=== PATIENT | female | born 1940 ===

== ENCOUNTER 2017-04-21 12:46 | Inpatient (IN) | payer OTHER ==
[~2017-04-21] VITALS: Ht 162.6 cm; Wt 64.0 kg
[2017-04-21] MEDS ORDERED: TRAZ-144 PO (13:03)
[2017-04-21] MEDS ORDERED: KRIL500C PO (13:03)
[2017-04-21] MEDS ORDERED: FERR-58 PO (13:03)
[2017-04-21] MEDS ORDERED: DIVA250T4 PO (13:03)
[2017-04-21] MEDS ORDERED: DOCU-141 PO (13:03)
[2017-04-21] MEDS ORDERED: QUET200T PO (13:03)
[2017-04-21] MEDS ORDERED: POLY17PO4 PO (13:03)
[2017-04-21] MEDS ORDERED: CYAN100T3 PO (13:03)
--- NOTE | 2017-04-21 13:19 | NUR ---
76 YEARS OLD FEMALE BIBA FOR MEDICAL CLEARANCE/PSYCH ADMIT.
[2017-04-21] MEDS ORDERED: ACETAMINOPHEN ES 500 MG TABLET PO ONE (14:00)
[2017-04-21] MEDS ORDERED: ACETAMINOPHEN ES 500 MG TABLET ONE (14:51)
--- NOTE | 2017-04-21 14:52 | NUR ---
PT STABLE FOR TRANSFER TO MENTAL HEALTH FOR PSYCH TREATMENT.REPORT GIVEN TO TASH ALL QUESTIONS ANSWERED.
[2017-04-21 15:00] VITALS: BP 120/76
--- NOTE | 2017-04-21 15:10 | NUR ---
Pt arrived to unit via gurney accompanied by nurse. Pt is calm and cooperative. Compliant with staff. Pleasant upon approach. Denies pain or discomfort. Able to verbalize all needs. Pt on 5150 hold at this time.
[2017-04-21] MEDS ORDERED: MAGNESIUM HYDROXIDE 30 ML LIQUID UDC PO PRN (15:30)
[2017-04-21] MEDS ORDERED: MAG HYDROX/AL HYDROX/SIMETH 30 ML LIQUID UDC PO PRN (15:30)
[2017-04-21] MEDS ORDERED: ZOLPIDEM 5 MG TABLET PO PRN (15:30)
--- NOTE | 2017-04-21 16:00 | NUR ---
Upon further assessment and admission interview, pt seems to be quite manic. Hyperverbal and extremely tangential, will jump from one topic to another, rambling incessantly. Pt has poor boundaries, touching nurses face and other pts. Pt also noted to be quite delusional, stating her son has "computerized my house all over."
[2017-04-21 20:00] VITALS: BP 107/65
[2017-04-21] MEDS: LORAZEPAM 0.5 MG TABLET PO PRN (20:11)
[2017-04-21] MEDS: DOCUSATE SODIUM 100 MG CAPSULE PO SCH (20:11)
[2017-04-21] MEDS: ACETAMINOPHEN 325 MG TABLET PO PRN (20:32)
[2017-04-22 07:30] VITALS: BP 118/62
[2017-04-22] MEDS: MIRALAX 17 GM POWD.PACK PO SCH (08:13)
[2017-04-22] MEDS: CYANOCOBALAMIN 100 MCG TABLET PO SCH (08:13)
[2017-04-22] MEDS: ACETAMINOPHEN 325 MG TABLET PO PRN (12:08)
[2017-04-22 15:40] VITALS: BP 113/62
[2017-04-22] MEDS: DIVALPROEX ER 250 MG TAB.SR.24H PO SCH (16:23)
[2017-04-22 19:44] VITALS: BP 117/63
[2017-04-22] MEDS: DOCUSATE SODIUM 100 MG CAPSULE PO SCH (20:30)
[2017-04-22] MEDS: QUETIAPINE FUMARATE 200 MG TABLET PO SCH (20:30)
[2017-04-23 07:25] LABS: BASOPHILS % (AUTO) 0.6 % (0.0-2.0); EOSINOPHILS # (AUTO) 0.1 K/uL (0.0-0.7); EOSINOPHILS % (AUTO) 1.3 % (0.0-7.0); HEMATOCRIT 33.8 % (31.2-41.9); LYMPHOCYTES # (AUTO) 1.9 K/uL (20.0-40.0); LYMPHOCYTES % (AUTO) 37.6 % (20.5-51.5); MEAN CORPUSCULAR HEMOGLOBIN 29.6 uug (24.7-32.8); MEAN CORPUSCULAR HGB CONC 33 g/dL (32.3-35.6); MONOCYTES # (AUTO) 0.9 K/uL (2.0-10.0); MONOCYTES % (AUTO) 17.2 % (0.0-11.0); NEUTROPHILS # (AUTO) 2.1 K/uL (1.8-8.9); NEUTROPHILS % (AUTO) 43.3 % (38.5-71.5); PLATELET COUNT (AUTO) 132 K/uL (179-408); RED BLOOD CELL COUNT(AUTO) 3.71 MIL/uL (3.63-4.92); WHITE BLOOD COUNT (AUTO) 4.9 K/uL (3.8-11.8)
[2017-04-23 07:30] VITALS: BP 119/70
[2017-04-23 07:37] LABS: CARBON DIOXIDE 28 mmol/L (21-32); CHLORIDE 108 mmol/L (98-107); CREATININE 1.7 mg/dL (0.6-1.3); GLUCOSE 88 mg/dL (74-106); MAGNESIUM 2.5 mg/dL (1.8-2.4); POTASSIUM 4.6 mmol/L (3.5-5.1); UREA NITROGEN, BLOOD 25 mg/dL (7-18)
[2017-04-23] MEDS: DIVALPROEX ER 250 MG TAB.SR.24H PO SCH ×2 (08:17→16:50)
[2017-04-23] MEDS: FERROUS SULFATE 325 MG TABEC PO SCH (08:17)
[2017-04-23] MEDS: CYANOCOBALAMIN 100 MCG TABLET PO SCH (08:17)
[2017-04-23] MEDS: MIRALAX 17 GM POWD.PACK PO SCH (08:17)
[2017-04-23 08:25] LABS: BASOPHILS % (MANUAL) 1 % (0-2); EOSINOPHILS % (MANUAL) 3 % (0-8); LYMPHOCYTES % (MANUAL) 40 % (20-40); MONOCYTES % (MANUAL) 16 % (2-10); NEUTROPHILS % (MANUAL) 40 % (42-75)
[2017-04-23 15:36] VITALS: BP 135/61
--- NOTE | 2017-04-23 17:38 | NUR ---
Gps/Director Sterile Processing- Jraocho, stayed in the TV room watching TV, min interactions w/ her peers, making needs known. Patient son John, and daughter in law Kavitha in to visit.Participating fairly well in her group therapy.Safety reviewed, emphasized, less hyper this pm
[2017-04-23 20:19] VITALS: BP 126/63
[2017-04-23] MEDS: QUETIAPINE FUMARATE 200 MG TABLET PO SCH ×2 (20:34→22:16)
[2017-04-23] MEDS: DOCUSATE SODIUM 100 MG CAPSULE PO SCH (20:34)
[2017-04-23] MEDS: ATORVASTATIN 20 MG TABLET PO SCH (21:00)
[2017-04-24 07:30] VITALS: BP 124/67
[2017-04-24] MEDS: ASPIRIN 81 MG TAB.CHEW PO SCH (09:00)
[2017-04-24] MEDS: DIVALPROEX ER 250 MG TAB.SR.24H PO SCH ×2 (09:17→16:05)
[2017-04-24] MEDS: MIRALAX 17 GM POWD.PACK PO SCH (09:17)
--- NOTE | 2017-04-24 12:07 | NUR ---
Initial DC Plan: Patient currently lives at home with her son Abhinav [[address] [place] [address]. [place]ang [address]; [phone]]. SW will follow up with MD, patient, and patient's family to discuss most appropriate discharge plans. SW will form a safe and proper discharge.
--- NOTE | 2017-04-24 14:19 | NUR ---
Firearms Reporting: JOSE submitted Mental Health Report to [facility] on 04/24.
[2017-04-24] MEDS: ACETAMINOPHEN 325 MG TABLET PO PRN (16:05)
[2017-04-24 16:23] VITALS: BP 103/58
--- NOTE | 2017-04-24 18:26 | NUR ---
Patient visible in dayroom watching tv with peers, pleasant on approach, interacts with peers and staff, helpful with peers, ate 100% breakfast and lunch. Medication compliant and cooperative. At around 1630, patient went to her room and started crying loud, patient states "i want to see my son", but denies suicidal/homicidal ideations. Will continue to monitor for safety and needs.
[2017-04-24 20:00] VITALS: BP 113/65
[2017-04-24] MEDS: DOCUSATE SODIUM 100 MG CAPSULE PO SCH (21:00)
[2017-04-24] MEDS: QUETIAPINE FUMARATE 200 MG TABLET PO SCH (21:00)
[2017-04-24] MEDS: ATORVASTATIN 20 MG TABLET PO SCH (21:00)
[2017-04-25 07:30] VITALS: BP 120/69
[2017-04-25] MEDS: ASPIRIN 81 MG TAB.CHEW PO SCH (09:00)
[2017-04-25] MEDS: FERROUS SULFATE 325 MG TABEC PO SCH (09:05)
[2017-04-25] MEDS: MIRALAX 17 GM POWD.PACK PO SCH (09:05)
[2017-04-25] MEDS: DIVALPROEX ER 250 MG TAB.SR.24H PO SCH (09:05)
[2017-04-25] MEDS ORDERED: DIVALPROEX ER 250 MG TAB.SR.24H PO SCH (13:00)
[2017-04-25] MEDS: DIVALPROEX 250 MG TABLET.DR PO SCH ×2 (13:09→17:25)
--- NOTE | 2017-04-25 15:37 | NUR ---
UR Note: JOSE faxed patient's clinicals to [employer]vester TAINA at [employer] [[phone]; fax:[phone]]. JOSE will follow up with CM.
[2017-04-25 16:23] VITALS: BP 138/55
[2017-04-25 20:00] VITALS: BP 123/58
[2017-04-25] MEDS: QUETIAPINE FUMARATE 200 MG TABLET PO SCH (20:35)
[2017-04-25] MEDS: DOCUSATE SODIUM 100 MG CAPSULE PO SCH (20:35)
[2017-04-25] MEDS: ATORVASTATIN 20 MG TABLET PO SCH (20:35)
--- NOTE | 2017-04-25 21:00 | NUR ---
RECEIVED PATIENT IN THE DAY ROOM. SHE IS A/O X 3 . SHE IS ABLE TO MAKE HER NEEDS KNOW. NO DELUSIONAL THINKING NOTED AT THIS TIME. SHE IS MEDICATION COMPLIANT, PLEASANT AND COOPERATIVE AT THIS TIME WELL.
[2017-04-26 07:30] VITALS: BP 108/63
[2017-04-26] MEDS: DIVALPROEX 250 MG TABLET.DR PO SCH ×3 (08:11→17:13)
[2017-04-26] MEDS: MIRALAX 17 GM POWD.PACK PO SCH (08:11)
[2017-04-26] MEDS: ASPIRIN 81 MG TAB.CHEW PO SCH (08:11)
[2017-04-26] MEDS: QUETIAPINE FUMARATE 25 MG TABLET PO SCH (10:28)
[2017-04-26 15:17] VITALS: BP 104/59
[2017-04-26] MEDS: ACETAMINOPHEN 325 MG TABLET PO PRN (18:13)
[2017-04-26 19:52] VITALS: BP 104/62
[2017-04-26] MEDS: ATORVASTATIN 20 MG TABLET PO SCH (20:40)
[2017-04-26] MEDS: DOCUSATE SODIUM 100 MG CAPSULE PO SCH (20:40)
[2017-04-26] MEDS: QUETIAPINE FUMARATE 200 MG TABLET PO SCH (20:40)
[2017-04-26 20:48] VITALS: BP 111/58
[2017-04-27] MEDS: DIVALPROEX 250 MG TABLET.DR PO SCH ×3 (09:09→17:08)
[2017-04-27] MEDS: FERROUS SULFATE 325 MG TABEC PO SCH (09:09)
[2017-04-27] MEDS: MIRALAX 17 GM POWD.PACK PO SCH (09:10)
[2017-04-27] MEDS: ASPIRIN 81 MG TAB.CHEW PO SCH (09:10)
[2017-04-27] MEDS: QUETIAPINE FUMARATE 25 MG TABLET PO SCH (09:10)
[2017-04-27 10:20] VITALS: BP 126/71
[2017-04-27] MEDS ORDERED: HYDROCORTISONE 0.5% CREAM 28.35 GM TUBE TOP SCH (14:15)
[2017-04-27] MEDS: HYDROCORTISONE 1% CREAM 30 GM TUBE TP SCH ×2 (15:09→22:09)
[2017-04-27 17:13] VITALS: BP 97/51
[2017-04-27 19:48] VITALS: BP 122/68
[2017-04-27] MEDS: ATORVASTATIN 20 MG TABLET PO SCH (20:14)
[2017-04-27] MEDS: DOCUSATE SODIUM 100 MG CAPSULE PO SCH (20:14)
[2017-04-27] MEDS: QUETIAPINE FUMARATE 200 MG TABLET PO SCH (20:15)
[2017-04-28 07:30] VITALS: BP 115/61
[2017-04-28 08:07] LABS: CARBON DIOXIDE 25 mmol/L (21-32); CHLORIDE 109 mmol/L (98-107); CREATININE 1.7 mg/dL (0.6-1.3); GLUCOSE 104 mg/dL (74-106); POTASSIUM 4.2 mmol/L (3.5-5.1); UREA NITROGEN, BLOOD 40 mg/dL (7-18)
[2017-04-28] MEDS: ASPIRIN 81 MG TAB.CHEW PO SCH (08:59)
[2017-04-28] MEDS: DIVALPROEX 250 MG TABLET.DR PO SCH ×3 (08:59→17:34)
[2017-04-28] MEDS: QUETIAPINE FUMARATE 25 MG TABLET PO SCH ×2 (08:59→17:34)
[2017-04-28] MEDS: MIRALAX 17 GM POWD.PACK PO SCH (09:00)
[2017-04-28] MEDS: HYDROCORTISONE 1% CREAM 30 GM TUBE TP SCH ×2 (09:00→20:16)
--- NOTE | 2017-04-28 12:48 | NUR ---
UR Note: JOSE faxed patient's clinicals to Entertainment Agent TAINA at [employer] [facility] [[phone]; fax:[phone]]. Awaiting authorization.
--- NOTE | 2017-04-28 14:08 | NUR ---
UR Note: JOSE spoke with Nina at [facility] [[phone]] who stated patient is authorized through Tuesday 05/01.
[2017-04-28] MEDS: ACETAMINOPHEN 325 MG TABLET PO PRN (14:54)
--- NOTE | 2017-04-28 16:41 | NUR ---
Gps/Fishing Worker-Refusing to have her vital signs check this pm, anxious, gets intrusive at times.Easily gets irritable when being prompted to initiate simple tasks, remains delusional. Complained of headache, was medicated with tylenol 650 mg. adequate relief.Complained of itching offered hydrocortisone cream as ordered, claimed she'll let staff know when she's ready. she does not need it right this moment per pt.
--- NOTE | 2017-04-28 18:20 | NUR ---
Gps/Centrifugal Machine Tender- Interacting fairly well with her male peers, needed redirections from time to time , safety reviewed, emphasized,gets argumentative when being redirected.
--- NOTE | 2017-04-28 18:25 | NUR ---
PT QUITE MANIC, ARGUMENTATIVE AND INTRUSIVE. POOR BOUNDARIES. PT WILL TOUCH OTHER PATIENTS, MOVE THEIR CHAIRS, PUSH THEIR WHEELCHAIRS, ETC. WHEN REDIRECTED, PT BECOMES VERY ARGUMENTATIVE AND HYPERVERBAL. SEEN BY STAFF PUSHING A MALE PT ON A WHEELCHAIR INTO HER ROOM TELLING HIM "SHHHH". CONTINUES TO REQUIRE REDIRECTION. NO COMBATIVE OR AGGRESSIVE BEHAVIOR NOTED.
[2017-04-28] MEDS: LORAZEPAM 0.5 MG TABLET PO PRN (18:35)
--- NOTE | 2017-04-28 18:37 | NUR ---
Gps/Fha Underwriter- Patient was very upset she claimed someone cleansed her bedside drawer and she is missing papers, wanting to talk to her son on the phone. Ativan 0.5 mg 1 tab po. given for > agitation and loud behavior
[2017-04-28 20:02] VITALS: BP 121/69
[2017-04-28] MEDS: QUETIAPINE FUMARATE 200 MG TABLET PO SCH (20:15)
[2017-04-28] MEDS: ATORVASTATIN 20 MG TABLET PO SCH (20:15)
[2017-04-28] MEDS: DOCUSATE SODIUM 100 MG CAPSULE PO SCH (20:15)
--- NOTE | 2017-04-29 06:50 | NUR ---
GPS/TOOL GRINDER SET UP OPERATOR GEAR: REMAIN CALM AND COOPERATIVE WITH MEDICATION AND CARE. SHOWERED THIS MORNING. SLEPT 09:30 HRS THROUGH THE NIGHT.
[2017-04-29 07:30] VITALS: BP 109/58
[2017-04-29] MEDS: MIRALAX 17 GM POWD.PACK PO SCH (09:32)
[2017-04-29] MEDS: QUETIAPINE FUMARATE 25 MG TABLET PO SCH ×2 (09:32→17:56)
[2017-04-29] MEDS: ASPIRIN 81 MG TAB.CHEW PO SCH (09:32)
[2017-04-29] MEDS: FERROUS SULFATE 325 MG TABEC PO SCH (09:32)
[2017-04-29] MEDS: DIVALPROEX 250 MG TABLET.DR PO SCH ×4 (09:32→17:56)
[2017-04-29] MEDS: HYDROCORTISONE 1% CREAM 30 GM TUBE TP SCH ×2 (09:33→20:20)
[2017-04-29 15:00] VITALS: BP 109/66
[2017-04-29 20:00] VITALS: BP 105/51
[2017-04-29] MEDS: DOCUSATE SODIUM 100 MG CAPSULE PO SCH (20:20)
[2017-04-29] MEDS: ATORVASTATIN 20 MG TABLET PO SCH (20:20)
[2017-04-29] MEDS: QUETIAPINE FUMARATE 200 MG TABLET PO SCH (20:20)
[2017-04-30 07:30] VITALS: BP 120/63
[2017-04-30] MEDS: MIRALAX 17 GM POWD.PACK PO SCH (08:34)
[2017-04-30] MEDS: DIVALPROEX 250 MG TABLET.DR PO SCH ×3 (08:35→16:27)
[2017-04-30] MEDS: QUETIAPINE FUMARATE 25 MG TABLET PO SCH ×2 (08:35→16:27)
[2017-04-30] MEDS: ASPIRIN 81 MG TAB.CHEW PO SCH (08:35)
[2017-04-30] MEDS: HYDROCORTISONE 1% CREAM 30 GM TUBE TP SCH ×2 (08:55→20:15)
[2017-04-30 15:00] VITALS: BP 122/59
[2017-04-30 19:30] VITALS: BP 106/66
[2017-04-30] MEDS: QUETIAPINE FUMARATE 200 MG TABLET PO SCH (20:15)
[2017-04-30] MEDS: DOCUSATE SODIUM 100 MG CAPSULE PO SCH (20:15)
[2017-04-30] MEDS: ATORVASTATIN 20 MG TABLET PO SCH (20:15)
[2017-04-30] MEDS: ACETAMINOPHEN 325 MG TABLET PO PRN (20:20)
--- NOTE | 2017-04-30 22:24 | NUR ---
PATIENT RECEIVED IN ROOM AWAKE. PATIENT COMPLAINT WITH MEDICATION. HYPERVERBAL, PARANOID AND SUSPICIOUS. PATIENT IN NO APPARENT DISTRESS, WILL CONTINUE TO MONITOR. NO AGGRESSIVE OR COMBATIVE BEHAVIOR. TYLENOL GIVEN ORDERED, HEADACHE NOTED 07/22. BED IN LOWEST POSITION, BED LOCKED, AND BED ALARM ON WHILE IN BED.
[2017-04-30] MEDS: LORAZEPAM 0.5 MG TABLET PO PRN (23:38)
[2017-05-01 07:30] VITALS: BP 116/55
[2017-05-01] MEDS: QUETIAPINE FUMARATE 25 MG TABLET PO SCH ×2 (08:23→16:08)
[2017-05-01] MEDS: DIVALPROEX 250 MG TABLET.DR PO SCH ×3 (08:24→16:08)
[2017-05-01] MEDS: ASPIRIN 81 MG TAB.CHEW PO SCH (08:24)
[2017-05-01] MEDS: HYDROCORTISONE 1% CREAM 30 GM TUBE TP SCH ×2 (08:24→20:16)
[2017-05-01] MEDS: MIRALAX 17 GM POWD.PACK PO SCH (08:24)
[2017-05-01] MEDS: FERROUS SULFATE 325 MG TABEC PO SCH (08:24)
[2017-05-01 16:58] VITALS: BP 103/56
[2017-05-01] MEDS: QUETIAPINE FUMARATE 200 MG TABLET PO SCH (20:16)
[2017-05-01] MEDS: DOCUSATE SODIUM 100 MG CAPSULE PO SCH (20:16)
[2017-05-01] MEDS: ATORVASTATIN 20 MG TABLET PO SCH (20:16)
[2017-05-01 21:28] VITALS: BP 129/61
--- NOTE | 2017-05-02 06:25 | NUR ---
GPS: REMAIN CALM AND COOPERATIVE. NO AGGRESSIVE BEHAVIOR NOTED. SLEPT 08:15 HRS THROUGH THE NIGHT.CONTINUE PLAN OF CARE.
[2017-05-02 07:30] VITALS: BP 107/51
--- NOTE | 2017-05-02 09:10 | NUR ---
DC Note: Patient will be discharged home with family [[address] [place] [address]; [phone]] via private transportation at 1pm. SW spoke with patient's son Saud [[phone]] who stated patient's sons Abhinav and Alvaro [[phone]] will be picking patient. Patient's family is aware and agreeable to discharge plans. Patient is aware and agreeable to discharge plans. Patient will follow up with her Material Requisitioner Dr. Giovany Laboy [[phone]] and Psychiatrist Dr. Tai Valadez [[phone]]. Patient has an appoint with Dr. Valadez on May 26 at 1pm [[address] [facility]. [place], [place]].
[2017-05-02] MEDS: DIVALPROEX 250 MG TABLET.DR PO SCH ×2 (09:24→12:18)
[2017-05-02] MEDS: QUETIAPINE FUMARATE 25 MG TABLET PO SCH (09:24)
[2017-05-02] MEDS: MIRALAX 17 GM POWD.PACK PO SCH (09:24)
[2017-05-02] MEDS: ASPIRIN 81 MG TAB.CHEW PO SCH (09:24)
[2017-05-02] MEDS: HYDROCORTISONE 1% CREAM 30 GM TUBE TP SCH (09:25)
--- NOTE | 2017-05-02 12:00 | NUR ---
Discharge instructions given to patient and son at bedside. Verbalized understanding. Pt to /[facility] PMD re: vaccinations. Prescription given to patient. Pt is in no acute distress upon discharge. All valuable forms signed and given to patient.
--- NOTE | 2017-05-02 16:03 | NUR ---
UR Note: JOSE faxed patient's discharge clinicals to Offender Employment Specialist TAINA at [facility] [[phone]; fax:[phone]].
== END 2017-05-02 12:30 | disposition home or self-care (01) | DRG 885 ==
LOC: ER 12:46 → GPS 14:57
PROVIDERS: ADMIT Psychiatry & Neurology Psychiatry; ATTEND Internal Medicine
DX: F31.64 Bipolar disorder, current episode mixed, severe, with psychotic features (principal); N17.0 Acute kidney failure with tubular necrosis; E87.0 Hyperosmolality and hypernatremia; D69.6 Thrombocytopenia, unspecified; E11.9 Type 2 diabetes mellitus without complications; E67.8 Other specified hyperalimentation; E78.5 Hyperlipidemia, unspecified; Z90.710 Acquired absence of both cervix and uterus; Z79.899 Other long term (current) drug therapy; Z91.19 Patient's noncompliance with other medical treatment and regimen; Z88.0 Allergy status to penicillin; Z88.2 Allergy status to sulfonamides; Z73.6 Limitation of activities due to disability; F29 Unspecified psychosis not due to a substance or known physiological condition
CPT/HCPCS: 36415; 71010; 80164; 83735; 85025; A4663; J3490